=== PATIENT | female | born 1950 | race Hispanic/Latino ===

== ENCOUNTER 2017-07-25 11:39 | Emergency (ER) | payer OTHER ==
[2017-07-25 12:14] LABS: Absolute Lymphocytes (CBC) 3.8 K/uL (0.7-4.9); Absolute Monocytes 0.5 K/uL (0.1-1.3); Absolute Neutrophil 4.9 K/uL (1.8-8.0); Basophils % 0.4 % (0-1.3); Eosinophils % 0.5 % (0-4.4); Hematocrit 41.6 % (36.0-45.0); Lymphocytes % 40.7 % (15.3-44.8); MCH 29.3 pg (27.0-35.0); MCV 89.2 fL (80-100); MPV 8.7 fL (7.6-11.3); Monocytes % 5.7 % (3.3-12.3); RBC Red Blood Cell Count 4.67 M/uL (3.86-4.86)
[2017-07-25 12:21] LABS: Potassium 3.2 mEq/L (3.6-5.0)
[2017-07-25 12:27] LABS: Albumin 4.3 g/dL (3.2-5.5); Bilirubin Direct 0.1 mg/dL (0-0.2); Bilirubin Total 0.7 mg/dL (0.3-1.2); Magnesium 1.9 mg/dL (1.8-2.5); Protein, Total 7.6 g/dL (6.0-8.3); Protime INR 1.01
[2017-07-25 12:30] LABS: CKMB Creatine Kinase MB 2.5 ng/ml (0.3-4.0)
--- NOTE | 2017-07-25 13:24 | RAD REPORT ---
EXAM DESCRIPTION: RAD - Chest Single View - 07/25/2017 1:04 pm CLINICAL HISTORY: Chest pain COMPARISON: None. TECHNIQUE: AP portable chest image was obtained 1223 hours . FINDINGS: No failure, volume overload or focal lung parenchymal process. Interstitial markings are m ildly prominent believed be baseline. Heart and vasculature are normal. No measurable pleural effusio n and no pneumothorax. No gross bony abnormality seen. No acute aortic findings suspected. IMPRESSION: No acute cardiopulmonary process.
--- NOTE | 2017-07-25 13:34 | EKG ---
Test Date: 2017-07-25 Test Time: 11:54:01 Ict Analyst: JT MEASUREMENT RESULTS: Intervals: Rate: 79 OR: 148 QRSD: 82 QT: 404 QTc: 463 [place]: P: 65 OR: 148 QRS: 19 T: 45 INTERPRETIVE STATEMENTS: Normal sinus rhythm Normal ECG Compared to ECG 10/07/2012 12:13:53 Sinus bradycardia no longer present Electronically Signed On 07-25-17 13:34:14 CDT by Marcos Law
[2017-07-25] MEDS ORDERED: POTASSIUM CL SA 10 MEQ TAB PO ONE (13:43)
--- NOTE | 2017-07-25 15:39 | ER ---
Nurse's Notes [facility] Name: Myra Healy Age: 67 yrs Sex: Female : 1950 Arrival Date: 07/25/2017 Time: 11:39 Bed 16 Private MD: Yosi Barron C Diagnosis: Chest pain, unspecified Presentation: 07/25 11:52 Presenting complaint: Patient states: shortness of breath a slight chest pain for about dm5 a week. Got worse about an hour ago while showering. pain currently 3/10 was 6/10. Transition of care: patient was not received from another setting of care. Onset of symptoms was July 25, 2017 at 11:00. Initial Sepsis Screen: Does the patient meet any 2 criteria? RR > 20 per min. No. Patient's initial sepsis screen is negative. Does the patient have a suspected source of infection? No. Patient's initial sepsis screen is negative. Care prior to arrival: None. 11:52 Acuity: OBDULIA 2 dm5 11:52 Method Of Arrival: Ambulatory dm5 12:11 Risk Assessment: Do you want to hurt yourself or someone else? Patient reports no ae1 desire to harm self or others. Triage Assessment: 11:52 General: Appears distressed, Behavior is cooperative, anxious. Pain: Complains of pain dm5 in chest Pain radiates to back Pain currently is 3 out of 10 on a pain scale. at worst was 6 out of 10 on a pain scale. Neuro: Level of Consciousness is awake, alert, obeys commands, Oriented to person, place, time, Senior Applications Developer are equal bilaterally Moves all extremities. Gait is steady. Cardiovascular: Reports chest pain, diaphoresis, fatigue, shortness of breath. Historical: - Allergies: 12:34 No Known Allergies; ae1 - Home Meds: 12:34 losartan 100 mg oral tab 1 tab once daily [Active]; pantoprazole 40 mg oral TbEC 1 tab ae1 once daily [Active]; 12:38 Colace 50 mg oral cap 1 cap 2 times per day [Active]; Probiotic oral Pearls oral ae1 [Active]; - PMHx: 12:34 Hypertension; ae1 - PSHx: 12:34 sinus surgery to improve nasal drainage.; ae1 - Immunization history:: Last tetanus immunization: > 10 years ago Pneumococcal vaccine is not up to date, Flu vaccine is not up to date. - Social history:: Smoking status: Patient/guardian denies using tobacco. - Ebola Screening: : Patient negative for fever greater than or equal to 101.5 degrees Fahrenheit, and additional compatible Ebola Virus Disease symptoms Patient denies exposure to infectious person Patient denies travel to an Ebola-affected area in the 21 days before illness onset. Screenin:11 Abuse screen: Denies threats or abuse. Denies injuries from another. Nutritional ae1 screening: No deficits noted. Tuberculosis screening: No symptoms or risk factors identified. Fall Risk None identified. Assessment: 12:12 Pain: Pain began suddenly, 2 hours ago. ae1 12:31 Reassessment: Patient refuses pain medication and nausea medication at this time. ae1 Denies pain, states she feels better. 13:15 Reassessment: Patient up to restroom to urinate .Obtained urine sample at this time. ae1 14:00 Reassessment: Provider at bedside discussing plan of care. ae1 14:58 Reassessment: Patient appears in no apparent distress at this time. Patient denies pain ae1 at this time. Patient states feeling better. Patient states symptoms have improved. 15:50 Reassessment: Provider at bedside discussing plan of care. ae1 Vital Signs: 11:52 BP 148 / 83; Pulse 80; Resp 22; Temp 97.5; Pulse Ox 100% on R/A; Pain 3/10; dm5 12:34 BP 165 / 74; Pulse 67; Resp 19; Pulse Ox 98% on R/A; Weight 71.67 kg (R); Pain 0/10; ae1 13:46 BP 131 / 73; Pulse 68; Resp 18; Pulse Ox 98% on R/A; ae1 14:58 BP 112 / 61; Pulse 78; Resp 17; Pulse Ox 99% on R/A; ae1 16:24 BP 152 / 65; Pulse 80; Resp 18; Pulse Ox 100% on R/A; ae1 ED Course: 11:39 Patient arrived in ED. as 11:40 Yosi Barron MD is Private Physician. as 11:43 Aamir Sanford PA is PHCP. cp 11:43 Jackson Wade MD is Attending Physician. cp 11:52 Arm band placed on right wrist. Patient placed in an exam room, on a stretcher, on dm5 back tender fourdrinier, on pulse oximetry. 11:54 Triage completed. dm5 11:58 EKG done, by technology analyst. reviewed by Aamir HACKETT. at1 12:08 Thien Pro, CHRISTINA is Primary Nurse. ae1 12:10 Inserted saline lock: 20 gauge in right antecubital area, using aseptic technique. ae1 Blood collected. Patient maintains SpO2 saturation greater than 95% on room air. 12:11 Placed in gown. Bed in low position. Call light in reach. Side rails up X 1. Adult w/ ae1 patient. outside sales inspector on. Pulse ox on. NIBP on. Warm blanket given. 13:05 XRAY Chest (1 view) In Process Unspecified. EDMS 13:09 X-ray completed. Portable x-ray completed in exam room. Patient tolerated procedure mh1 well. 15:28 EKG done, by technology analyst. reviewed by Aamir HACKTET. sm3 15:39 Yosi Barron MD is Referral Physician. cp 16:06 CT Chest For PE Angio In Process Unspecified. EDMS 16:09 CT completed. Patient tolerated procedure well. Patient moved back from CT. mw3 16:39 Yosi Barron MD is Referral Physician. cp 16:57 No provider procedures requiring assistance completed. IV discontinued, intact, ae1 bleeding controlled, No redness/swelling at site. Pressure dressing applied. Administered Medications: 12:20 Drug: NS 0.9% 500 ml Route: IV; Rate: bolus; Site: right antecubital; ae1 12:40 Follow up: IV Status: Completed infusion ae1 12:20 Drug: Aspirin Chewable Tablet 324 mg Route: PO; ae1 13:45 Follow up: Response: No adverse reaction ae1 13:43 Drug: Potassium Chloride 20 mEq Route: PO; ae1 14:57 Follow up: Response: No adverse reaction ae1 13:44 Not Given (Patient Refused): morphine 2 mg IVP once ae1 13:44 Not Given (Patient Refused): Zofran 4 mg IVP once; over 2 minutes ae1 Outcome: 15:39 Discharge ordered by MD. cp 16:40 Discharge ordered by MD. cp 16:57 Discharged to home ambulatory, with significant other. ae1 16:57 Condition: stable 16:57 Discharge instructions given to patient, significant other, Instructed on discharge instructions, follow up and referral plans. medication usage, Demonstrated understanding of instructions, Prescriptions given X 2. 16:58 Patient left the ED. ae1 Signatures: Dispatcher [employer] Gwen Hays, RN RN dm5 Michaela Saul mh1 Jessy Brian Amanda, seam sewer EKG Tat1 Aamir Sanford PA PA cp Elliott, Andrea, RN RN ae1 Alie Wilhelm 3 Angelica Pennington 3
--- NOTE | 2017-07-25 15:39 | EDPHYS ---
Physician Documentation [facility] Name: Myra Healy Age: 67 yrs Sex: Female : 1950 Arrival Date: 07/25/2017 Time: 11:39 Bed 16 Private MD: Yosi Barron C ED Physician Jackson Wade HPI: 07/25 12:06 This 67 yrs old Female presents to ER via Ambulatory with complaints of Chest cp Pain. 12:07 The patient or guardian reports chest pain that is located primarily in the right lower cp lateral chest. Onset: 30 minute(s) ago. The pain radiates to epigastric area and right breast. 12:07 Associated signs and symptoms: Pertinent positives: shortness of breath, fatigue. The cp chest pain is described as a pressure. 12:07 Duration: The patient or guardian reports a single episode, improved. cp 15:48 Patient reports recent sinus surgery that required general anesthesia. cp Historical: - Allergies: 12:34 No Known Allergies; ae1 - Home Meds: 12:34 losartan 100 mg oral tab 1 tab once daily [Active]; pantoprazole 40 mg oral TbEC 1 tab ae1 once daily [Active]; 12:38 Colace 50 mg oral cap 1 cap 2 times per day [Active]; Probiotic oral Pearls oral ae1 [Active]; - PMHx: 12:34 Hypertension; ae1 - PSHx: 12:34 sinus surgery to improve nasal drainage.; ae1 - Immunization history:: Last tetanus immunization: > 10 years ago Pneumococcal vaccine is not up to date, Flu vaccine is not up to date. - Social history:: Smoking status: Patient/guardian denies using tobacco. - Ebola Screening: : Patient negative for fever greater than or equal to 101.5 degrees Fahrenheit, and additional compatible Ebola Virus Disease symptoms Patient denies exposure to infectious person Patient denies travel to an Ebola-affected area in the 21 days before illness onset. ROS: 12:15 Constitutional: Negative for body aches, chills, fever, poor PO intake. cp 12:15 Eyes: Negative for injury, pain, redness, and discharge. cp 12:15 ENT: Negative for drainage from ear(s), ear pain, sore throat, difficulty swallowing, difficulty handling secretions. 12:15 Cardiovascular: Positive for chest pain, Negative for edema, palpitations. 12:15 Respiratory: Positive for shortness of breath, on exertion. Negative for cough, wheezing. 12:15 Abdomen/GI: Negative for abdominal pain, vomiting, diarrhea, constipation, anorexia, black/tarry stool, rectal bleeding. 12:15 Back: Positive for radiated pain, of the right mid back, Negative for injury or acute deformity, decreased range of motion. 12:15 : Negative for urinary symptoms. 12:15 MS/extremity: Negative for decreased range of motion, pain, paresthesias, swelling, tenderness. 12:15 Skin: Negative for cellulitis, rash. 12:15 Neuro: Negative for altered mental status, dizziness, headache, weakness. 12:15 All other systems are negative. Exam: 12:00 ECG was reviewed by the Attending Physician. cp 12:19 Constitutional: The patient appears in no acute distress, alert, awake, cp non-diaphoretic, non-toxic, well developed, well nourished. 12:19 Head/Face: Normocephalic, atraumatic. cp 12:19 Eyes: Periorbital structures: appear normal, Pupils: equal, round, and reactive to light and accomodation, Extraocular movements: intact throughout, Conjunctiva: normal, no exudate, no injection, Sclera: no appreciated abnormality, Lids and lashes: appear normal, bilaterally. 12:19 ENT: External ear(s): are unremarkable, Ear canal(s): are normal, clear, TM's: bulging, is not appreciated, bilaterally, dullness, bilaterally, erythema, is not appreciated, bilaterally, Nose: is normal, Mouth: is normal, Posterior pharynx: is normal, airway is patent, no erythema, no exudate. 12:19 Neck: ROM/movement: is normal, is supple, without pain, no range of motions limitations, no nuchal rigidity. 12:19 Chest/axilla: Inspection: normal, Palpation: is normal, no crepitus, no tenderness. 12:19 Cardiovascular: Rate: normal, Rhythm: regular, Pulses: Pulses are 2+ in right radial artery and left radial artery. Edema: is not appreciated, JVD: is not appreciated. 12:19 Respiratory: the patient does not display signs of respiratory distress, Respirations: normal, no use of accessory muscles, no retractions, no splinting, no tachypnea, labored breathing, is not present, Breath sounds: are clear throughout, no decreased breath sounds, no stridor, no wheezing. 12:19 Abdomen/GI: Inspection: abdomen appears normal, Bowel sounds: active, all quadrants, Palpation: abdomen is soft and non-tender, in all quadrants, rebound tenderness, is not appreciated, voluntary guarding, is not appreciated, involuntary guarding, is not appreciated. 12:19 Back: pain, is absent, ROM is normal, CVA tenderness, is absent. 12:19 Skin: cellulitis, is not appreciated, no rash present. 12:19 Neuro: Orientation: to person, place \T\ time. Mentation: is normal, Cerebellar function: is grossly normal, Motor: moves all fours, strength is normal, Sensation: is normal. 15:22 ECG was reviewed by the Attending Physician. Vital Signs: 11:52 BP 148 / 83; Pulse 80; Resp 22; Temp 97.5; Pulse Ox 100% on R/A; Pain 3/10; dm5 12:34 BP 165 / 74; Pulse 67; Resp 19; Pulse Ox 98% on R/A; Weight 71.67 kg (R); Pain 0/10; ae1 13:46 BP 131 / 73; Pulse 68; Resp 18; Pulse Ox 98% on R/A; ae1 14:58 BP 112 / 61; Pulse 78; Resp 17; Pulse Ox 99% on R/A; ae1 16:24 BP 152 / 65; Pulse 80; Resp 18; Pulse Ox 100% on R/A; ae1 MDM: 11:52 Patient medically screened. cp 12:00 Differential diagnosis: abnormal EKG, acute myocardial infarction, anxiety, chest wall cp pain, cholecystitis, Cholelithiasis costochondritis, esophagitis, gastritis, pulmonary embolus, stable angina, thoracic aortic disection, unstable angina. 15:50 The patient's pulmonary embolism risk score was calculated as follows: patient has cp experienced immobilization or surgery in the last four weeks (1.5 Pts). 16:38 Data reviewed: vital signs, nurses notes, lab test result(s), EKG, radiologic studies, cp CT scan, plain films, and as a result, I will discharge patient. 16:38 Special discussion: I discussed with the patient the need to follow-up with the cp PCP/specialist for the noted incidental finding on X-ray/CT scanning. 16:38 ED course: VSS. Initial and repeat EKGs and troponin levels normal. CT chest negative cp for PE. Will discharge to home for continued monitoring. Recommend f/u with PCP for noted pulmonary nodule. 07/25 11:43 Order name: Basic Metabolic Panel; Complete Time: 13:04 cp 06/ 13:05 Interpretation: Normal except: K 3.2; CRE 1.04; GFR 53. cp 07/25 11:43 Order name: BNP; Complete Time: 13:04 cp 07/25 11:43 Order name: CBC with Diff; Complete Time: 13:04 cp 07/25 11:43 Order name: Ckmb; Complete Time: 13:04 cp 07/25 11:43 Order name: CPK; Complete Time: 13:04 cp 07/25 11:43 Order name: LFT's; Complete Time: 13:04 cp 07/25 11:43 Order name: Magnesium; Complete Time: 13:04 cp 07/25 11:43 Order name: PT-INR; Complete Time: 13:04 cp 07/25 11:43 Order name: Ptt, Activated; Complete Time: 13:04 cp 07/25 11:43 Order name: Troponin (emerg Dept Use Only); Complete Time: 13:04 cp 07/25 13:05 Interpretation: TROPED < 0.03; Reviewed. cp 07/25 12:00 Order name: Lipase; Complete Time: 13:04 cp 07/25 13:51 Order name: Urine Dipstick--Ancillary (enter results) bd 07/25 14:47 Order name: Troponin I; Complete Time: 15:38 ae1 07/25 15:38 Interpretation: Within normal limits: TROP < 0.03. cp 07/25 11:43 Order name: XRAY Chest (1 view); Complete Time: 15:38 cp 07/25 11:43 Order name: EKG; Complete Time: 11:44 cp 07/25 11:43 Order name: Cardiac monitoring; Complete Time: 12:09 cp 07/25 11:43 Order name: EKG - Nurse/Tech; Complete Time: 12:09 cp 07/25 11:43 Order name: IV Saline Lock; Complete Time: 12:09 cp 07/25 11:43 Order name: Labs collected and sent; Complete Time: 12:09 07/25 11:43 Order name: O2 Per Protocol; Complete Time: 12:09 07/25 11:43 Order name: O2 Sat Monitoring; Complete Time: 12:10 07/25 11:43 Order name: Urine Dipstick-Ancillary (obtain specimen); Complete Time: 13:49 07/25 14:50 Order name: EKG; Complete Time: 14:50 07/25 15:53 Order name: CT Chest For PE Angio; Complete Time: 16:35 07/25 16:36 Interpretation: Report reviewed. 07/25 14:50 Order name: EKG - Nurse/Tech; Complete Time: 15:18 cp EC:00 Rate is 79 beats/min. Rhythm is regular. MA interval is normal. QRS interval is normal. cp QT interval is normal. No ST changes noted. Interpreted by me. Reviewed by me. 15:22 Rate is 64 beats/min. Rhythm is regular. MA interval is normal. QRS interval is normal. cp QT interval is normal. No ST changes noted. Interpreted by me. Reviewed by me. Administered Medications: 12:20 Drug: NS 0.9% 500 ml Route: IV; Rate: bolus; Site: right antecubital; ae1 12:40 Follow up: IV Status: Completed infusion ae1 12:20 Drug: Aspirin Chewable Tablet 324 mg Route: PO; ae1 13:45 Follow up: Response: No adverse reaction ae1 13:43 Drug: Potassium Chloride 20 mEq Route: PO; ae1 14:57 Follow up: Response: No adverse reaction ae1 13:44 Not Given (Patient Refused): morphine 2 mg IVP once ae1 13:44 Not Given (Patient Refused): Zofran 4 mg IVP once; over 2 minutes ae1 Disposition: 07/25/17 16:40 Discharged to Home. Impression: Chest pain, unspecified. - Condition is Stable. - Discharge Instructions: Nonspecific Chest Pain, Aspirin and Your Heart. - Prescriptions for Ibuprofen 800 mg Oral Tablet - take 1 tablet by ORAL route every 8 hours As needed take with food; 30 tablet. Pepcid 20 mg Oral Tablet - take 1 tablet by ORAL route every 12 hours for 10 days; 20 tablet. - Medication Reconciliation Form, Thank You Letter, Antibiotic Education, Prescription Opioid Use form. - Follow up: Yosi Barron MD; When: 2 - 3 days; Reason: Recheck today's complaints. - Problem is new. - Symptoms have improved. Addendum: 07/27/2017 13:34 Co-signature as Attending Physician, Jackson Wade MD. g s Signatures: Dispatcher [employer] EDMS Aamir Sanford PA PA cp Thien Pro, RN RN ae1 Jackson Wade MD MD Corrections: (The following items were deleted from the chart) 07/25 15:52 15:39 07/25/2017 15:39 Discharged to Home. Impression: Chest pain, unspecified. cp Condition is Stable. Forms are Medication Reconciliation Form, Thank You Letter, Antibiotic Education, Prescription Opioid Use. Follow up: Yosi Barron; When: 2 - 3 days; Reason: Recheck today's complaints. Problem is new. Symptoms have improved. cp 16:58 16:40 07/25/2017 16:40 Discharged to Home. Impression: Chest pain, unspecified. ae1 Condition is Stable. Prescriptions for Ibuprofen 800 mg Oral Tablet - take 1 tablet by ORAL route every 8 hours As needed take with food; 30 tablet, Pepcid 20 mg Oral Tablet - take 1 tablet by ORAL route every 12 hours for 10 days; 20 tablet. and Forms are Medication Reconciliation Form, Thank You Letter, Antibiotic Education, Prescription Opioid Use. Follow up: Yosi Barron; When: 2 - 3 days; Reason: Recheck today's complaints. Problem is new. Symptoms have improved. cp
--- NOTE | 2017-07-25 16:34 | RAD REPORT ---
EXAM DESCRIPTION: CT - Chest For Pe Angio - 07/25/2017 4:07 pm CLINICAL HISTORY: Chest pain for 1 week COMPARISON: None. TECHNIQUE: Dynamically enhanced axial 3 mm thick images of the chest were obtained during administra tion of <100> mL Isovue 370 IV contrast. Coronal and oblique reconstruction images were generated and reviewed. Exam utilizes a protocol for optimal evaluation of pulmonary arterial tree. All CT scans are performed using dose optimization technique as appropriate and may include automated exposure control or mA/KV adjustment according to patient size. FINDINGS: A pulmonary embolus is not seen. A thoracic aortic aneurysm is not noted. A pleural effusion is not seen. A pericardial effusion is not seen. An 11 millimeter nodules present within the right lower lobe image 54 IMPRESSION: Negative for a pulmonary embolism. 11 millimeter nodule within the right lower lobe . Nuclear medicine PET-CT scan is recommended to det ermine if there is abnormal uptake to suggest neoplasm
[2017-07-25 17:22] LABS: Urine Blood NEGATIVE (NEG); Urine Glucose NEGATIVE (NEG); Urine Protein NEGATIVE (NEG); Urine Specific Gravity 1.025 (1.005-1.030); Urine pH 5.5 (5.0-7.0)
--- NOTE | 2017-07-26 06:48 | EKG ---
Test Date: 2017-07-25 Test Time: 15:15:58 Distribution Associate: CURLY MEASUREMENT RESULTS: Intervals: Rate: 64 UT: 152 QRSD: 82 QT: 436 QTc: 449 [place]: P: 59 UT: 152 QRS: 13 T: 28 INTERPRETIVE STATEMENTS: Normal sinus rhythm Normal ECG Compared to ECG 07/25/2017 11:54:01 No significant changes Electronically Signed On 07-26-17 06:47:36 CDT by Marcos Law
== END 2017-07-25 16:58 | disposition home or self-care (01) ==
LOC: ER 11:39
DX: R07.9 Chest pain, unspecified (principal); I10 Essential (primary) hypertension
CPT/HCPCS: 36415; 71045; 71275; 80048; 80076; 81003; 82550; 82553; 83690; 83735; 83880; 84484; 85025; 85610; 85730; 93005; 99285; Q9967

== ENCOUNTER 2017-11-11 09:15 | Emergency (ER) | payer OTHER ==
--- NOTE | 2017-11-11 10:00 | RAD REPORT ---
EXAM DESCRIPTION: CT - Head Brain Wo Cont - 11/11/2017 9:53 am CLINICAL HISTORY: Fall, head trauma, loss of consciousness COMPARISON: None. TECHNIQUE: Axial 5 mm thick images of the head were obtained without IV contrast. All CT scans are performed using dose optimization technique as appropriate and may include automated exposure control or mA/KV adjustment according to patient size. FINDINGS: No intracranial hemorrhage, mass, edema or shift of mid-line structures. No evidence for a n acute cortical based infarction. No cortical edema or sulcal effacement. No significant atrophy dolores nges are noted. Patient has mild chronic ischemic change. Focal decreased attenuation seen near the g enu internal capsule on the right. No abnormal extra-axial fluid collections. Ventricles are normal. Mastoid air cells and visualized portions of the paranasal sinuses are clear. No acute bony findings. IMPRESSION: No hemorrhage, edema or acute intracranial finding. Scattered white matter chronic ischemic changes are evident without significant atrophy. History indicates fall rather than CVA symptoms. Chronic ischemic change can mask acute nonhemorrhag ic ischemia. If there is concern the fall was triggered by a CVA event, followup MR imaging could be performed.
[2017-11-11] MEDS ORDERED: LIDOCAINE 1% MPF 2 ML AMPULE ONE (10:45)
--- NOTE | 2017-11-11 10:46 | RAD REPORT ---
EXAM DESCRIPTION: RAD - Ankle Left 3 View -11/11/2017 10:13 am CLINICAL HISTORY: Left ankle pain status post injury FINDINGS: No fracture or dislocation is seen. Soft tissue swelling is present laterally
--- NOTE | 2017-11-11 10:55 | ER ---
Nurse's Notes [facility] Name: Ekta Healy Age: 67 yrs Sex: Female : 1950 Arrival Date: 11/11/2017 Time: 09:16 Bed 8 Private MD: Yosi Barron C Diagnosis: Superficial injury of head;Laceration without foreign body of left ear;Sprain of ankle Presentation: 11/11 09:19 Presenting complaint: Patient states: fell while getting out of bed this morning, + sv LOC, laceration behind the left ear. c/o lightheadedness since and headache and left ankle pain. Care prior to arrival: None. Trauma event details: Injury occurred in the [facility], Injury occurred: at home. Injury occurred: November 11, 2017 Injury occurred at: 03:30. 09:19 Acuity: OBDULIA 3 sv 09:19 Method Of Arrival: Wheelchair sv 09:22 Transition of care: patient was not received from another setting of care. Onset of sv symptoms was November 11, 2017. 09:30 Mechanism of Injury: Fall out of bed approximately 2.5 feet. hb 09:38 Risk Assessment: Do you want to hurt yourself or someone else? Patient reports no hb desire to harm self or others. Initial Sepsis Screen: Does the patient meet any 2 criteria? No. Patient's initial sepsis screen is negative. Does the patient have a suspected source of infection? No. Patient's initial sepsis screen is negative. Trauma Activation: Not Applicable Physician: ED Physician; Name: ; Notified At: ; Arrived At: Physician: General Surgeon; Name: ; Notified At: ; Arrived At: Physician: Radiology; Name: ; Notified At: ; Arrived At: Physician: Respiratory; Name: ; Notified At: ; Arrived At: Physician: Lab; Name: ; Notified At: ; Arrived At: Historical: - Allergies: 09:21 No Known Allergies; sv - Home Meds: 09:46 Colace 50 mg Oral cap 1 cap 2 times per day [Active]; losartan 100 mg Oral tab 1 tab hb once daily [Active]; pantoprazole 40 mg Oral TbEC 1 tab once daily [Active]; Probiotic Pearls Oral [Active]; - PMHx: 09:21 Hypertension; sv - PSHx: 09:21 sinus surgery to improve nasal drainage.; sv - Immunization history:: Adult Immunizations up to date. - Social history:: Smoking status: Patient/guardian denies using tobacco. - Immunization history: Last tetanus immunization: < 10 years ago. - Ebola Screening: : No symptoms or risks identified at this time. Screenin:36 Abuse screen: Denies threats or abuse. Denies injuries from another. Nutritional hb screening: No deficits noted. Tuberculosis screening: No symptoms or risk factors identified. Fall Risk Total A[place]os Fall Scale indicates Low Risk Score (25-44 pts). Fall prevention measures have been instituted. Side Rails Up X 2 Frequent Obs/Assesments occuring Family Present and informed to notify staff if they need to leave bedside As available Patient and Family Educated on Fall Prevention Program and strategies. Primary Survey: 09:28 A: Airway: patent. Breathing/Chest: Respiratory pattern: regular, Respiratory effort: hb spontaneous, unlabored, Breath sounds: clear, bilaterally. Chest inspection: symmetrical rise and fall of the chest. Circulation: Skin color: pink, Skin temperature: warm, dry. Disability Alert. 10:15 Reassessment Airway Airway Patent Breathing/Chest Respiratory pattern Regular hb Respiratory effort Spontaneous Unlabored Chest inspection Symmetrical Circulation Color [place] Temperature Warm Dry Disability Alert. Secondary Survey: 09:40 HEENT: Ears: laceration to back of left earlobe, bleeding controlled. Gastrointestinal: hb No deficits noted. : No deficits noted. Musculoskeletal: Reports pain in left ankle, headache. Assessment: 09:43 General: Appears in no apparent distress. Behavior is calm, cooperative. Pain: Pain hb currently is 3 out of 10 on a pain scale. Neuro: Level of Consciousness is awake, alert, obeys commands, Oriented to person, place, time, situation, Pupils are PERRLA. EENT: laceration to back of left earlobe . Cardiovascular: Heart tones S1 S2 present Capillary refill < 3 seconds Patient's skin is warm and dry. Respiratory: Airway is patent Trachea midline Respiratory effort is even, unlabored, Respiratory pattern is regular, symmetrical, Breath sounds are clear bilaterally. GI: No signs and/or symptoms were reported involving the gastrointestinal system. : No signs and/or symptoms were reported regarding the genitourinary system. Derm: No signs and/or symptoms reported regarding the dermatologic system. Skin is intact, is healthy with good turgor, Skin is pink, warm \T\ dry. Musculoskeletal: Reports left ankle pain. 10:30 Reassessment: Patient appears in no apparent distress at this time. No changes from hb previously documented assessment. Patient and/or family updated on plan of care and expected duration. Pain level reassessed. Patient is alert, oriented x 3, equal unlabored respirations, skin warm/dry/pink. 10:44 Reassessment: ROXANN Brown at bedside for laceration repair. hb Vital Signs: 09:21 BP 138 / 73; Pulse 70; Resp 18; Temp 97.2; Pulse Ox 95% ; Weight 71.67 kg; Height 5 ft. sv 4 in. (162.56 cm); 09:45 BP 135 / 74; Pulse 71; Resp 16; Pulse Ox 100% on R/A; Pain 3/10; hb 10:30 BP 132 / 72; Pulse 70; Resp 15; Pulse Ox 100% on R/A; hb 09:21 Body Mass Index 27.12 (71.67 kg, 162.56 cm) sv Myriam Coma Score: 09:30 Eye Response: spontaneous(4). Verbal Response: oriented(5). Motor Response: obeys hb commands(6). Total: 15. 09:33 Eye Response: spontaneous(4). Verbal Response: oriented(5). Motor Response: obeys jr8 commands(6). Total: 15. Trauma Score (Adult): 09:30 Eye Response: spontaneous(1); Verbal Response: oriented(1); Motor Response: obeys hb commands(2); Systolic BP: > 89 mm Hg(4); Respiratory Rate: 10 to 29 per min(4); Myriam Score: 15; Trauma Score: 12 10:30 Eye Response: spontaneous(1); Verbal Response: oriented(1); Motor Response: obeys hb commands(2); Systolic BP: > 89 mm Hg(4); Respiratory Rate: 10 to 29 per min(4); Myriam Score: 15; Trauma Score: 12 ED Course: 09:16 Patient arrived in ED. sb2 09:17 Yosi Barron MD is Private Physician. sb2 09:21 Triage completed. sv 09:22 Arm band placed on right wrist. sv 09:23 [facility] jr8 09:23 Catarino Canas MD is Attending Physician. jr8 09:23 Sonia Ray, RN is Primary Nurse. hb 09:32 Patient maintains SpO2 saturation greater than 95% on room air. Thermoregulation: warm hb blanket given to patient. 09:33 Patient has correct armband on for positive identification. Placed in gown. Bed in low hb position. Call light in reach. Side rails up X 1. 09:53 CT Head Brain wo Cont In Process Unspecified. EDMS 09:59 CT completed. Patient tolerated procedure well. Patient moved back from CT. Patient jg6 moved back from radiology. 10:03 X-ray completed. Portable x-ray completed in exam room. Patient tolerated procedure jb2 well. 10:04 XRAY Ankle LEFT 3 view In Process Unspecified. EDMS 10:53 Assist provider with laceration repair on left ear that was 2.5 cm. or less using hb sutures. Set up tray. Performed by Kevin HACKETT Patient tolerated well. 10:54 Yosi Barron MD is Referral Physician. jr8 11:02 Angel wrap to left ankle. 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 Exp: sg 11/21/2019. Lot #: [id number]. } Route: IM; Site: right deltoid; Intake: 10:05 PO: 0ml; Total: 0ml. hb Output: 10:05 Urine: 200ml (Voided); Total: 200ml. hb Outcome: 10:55 Discharge ordered by . jr8 11:40 Patient left the ED. hb Signatures: Dispatcher [employer] EDVT Umu Reese RN RN sv Gay, Steven, RN RN sg Buechter, Jesse jb2 Roszak, Josh, PA PA jrSonia Taylor RN RN Lis Gonsalez Jessica jg6 Corrections: (The following items were deleted from the chart) 09:21 09:19 Presenting complaint: Patient states: fell while getting out of bed this morning, sv + LOC, laceration behind the left ear. c/o lightheadedness since. sv 11:04 11:02 Angel wrap to right ankle sg sg 11:21 11:01 Tetanus-Diphtheria Toxoid Adult 0.5 ml IM in right deltoid Game Moderator: [employer] Lot: [id number] Exp: 11/13/2019 sg
--- NOTE | 2017-11-11 10:56 | EDPHYS ---
Physician Documentation [facility] Name: Ekta Healy Age: 67 yrs Sex: Female : 1950 Arrival Date: 11/11/2017 Time: 09:16 Bed 8 Private MD: Yosi Barron C ED Physician Catarino Canas HPI: 11/11 09:33 This 67 yrs old Female presents to ER via Wheelchair with complaints of Head jr8 Injury With LOC-Adult, Ankle Swelling. 09:33 The patient or guardian reports a laceration, pain, tenderness. The complaints affect jr8 the left ear and left base of the skull. Context of injury: The problem was sustained at home, resulted from a fall. Onset: The symptoms/episode began/occurred acutely, this morning, today. Associated signs and symptoms: Loss of consciousness: This patient experience a loss of consciousness. Severity of symptoms: At their worst the symptoms were moderate, in the emergency department the symptoms have improved. The patient has not experienced similar symptoms in the past. The patient has not recently seen a physician. Tripped while getting out of bed. Fell hitting left skull base on side table. + LOC that lasted for a few seconds. Currently with only mild headache . Historical: - Allergies: 09:21 No Known Allergies; sv - Home Meds: 09:46 Colace 50 mg Oral cap 1 cap 2 times per day [Active]; losartan 100 mg Oral tab 1 tab hb once daily [Active]; pantoprazole 40 mg Oral TbEC 1 tab once daily [Active]; Probiotic Pearls Oral [Active]; - PMHx: 09:21 Hypertension; sv - PSHx: 09:21 sinus surgery to improve nasal drainage.; sv - Immunization history:: Adult Immunizations up to date. - Social history:: Smoking status: Patient/guardian denies using tobacco. - Immunization history: Last tetanus immunization: < 10 years ago. - Ebola Screening: : No symptoms or risks identified at this time. ROS: 09:33 Eyes: Negative for injury, pain, redness, and discharge, ENT: Negative for pain, and jr8 discharge. Laceration to left ear Neck: Negative for injury, pain, and swelling, Cardiovascular: Negative for chest pain, palpitations, and edema, Respiratory: Negative for shortness of breath, cough, wheezing, and pleuritic chest pain, Abdomen/GI: Negative for abdominal pain, nausea, vomiting, diarrhea, and constipation, Back: Negative for injury and pain, Skin: Negative for injury, rash, and discoloration. 09:33 Neuro: Positive for headache, loss of consciousness, Negative for altered mental status, gait disturbance, numbness, seizure activity, speech changes, syncope, near syncope, tingling, tinnitus, tremor, visual changes, weakness. 09:33 MS/extremity: Positive for pain, swelling, tenderness, of the left lateral malleolus . jr8 Exam: 09:33 Eyes: Pupils equal round and reactive to light, extra-ocular motions intact. Lids and jr8 lashes normal. Conjunctiva and sclera are non-icteric and not injected. Cornea within normal limits. Periorbital areas with no swelling, redness, or edema. ENT: Nares patent. No nasal discharge, no septal abnormalities noted. Tympanic membranes are normal and external auditory canals are clear. Oropharynx with no redness, swelling, or masses, exudates, or evidence of obstruction, uvula midline. Mucous membranes moist. Neck: Trachea midline, no thyromegaly or masses palpated, and no cervical lymphadenopathy. Supple, full range of motion without nuchal rigidity, or vertebral point tenderness. No Meningismus. Cardiovascular: Regular rate and rhythm with a normal S1 and S2. No gallops, murmurs, or rubs. Normal PMI, no JVD. No pulse deficits. Respiratory: Lungs have equal breath sounds bilaterally, clear to auscultation and percussion. No rales, rhonchi or wheezes noted. No increased work of breathing, no retractions or nasal flaring. Abdomen/GI: Soft, non-tender, with normal bowel sounds. No distension or tympany. No guarding or rebound. No evidence of tenderness throughout. Back: No spinal tenderness. No costovertebral tenderness. Full range of motion. Skin: Warm, dry with normal turgor. Normal color with no rashes, no lesions, and no evidence of cellulitis. Neuro: Awake and alert, GCS 15, oriented to person, place, time, and situation. Cranial nerves II-XII grossly intact. Motor strength 5/5 in all extremities. Sensory grossly intact. Cerebellar exam normal. Normal gait. 09:33 Head/face: Noted is a laceration(s), that is deep, that is linear, 1.5 cm(s), of the left ear, tenderness, that is mild, of the post auricular region left side. 09:33 Musculoskeletal/extremity: Extremities: grossly normal except: noted in the left ankle: decreased ROM, pain, swelling, tenderness, to lateral malleolus . Vital Signs: 09:21 BP 138 / 73; Pulse 70; Resp 18; Temp 97.2; Pulse Ox 95% ; Weight 71.67 kg; Height 5 ft. sv 4 in. (162.56 cm); 09:45 BP 135 / 74; Pulse 71; Resp 16; Pulse Ox 100% on R/A; Pain 3/10; hb 10:30 BP 132 / 72; Pulse 70; Resp 15; Pulse Ox 100% on R/A; hb 09:21 Body Mass Index 27.12 (71.67 kg, 162.56 cm) sv Myriam Coma Score: 09:30 Eye Response: spontaneous(4). Verbal Response: oriented(5). Motor Response: obeys hb commands(6). Total: 15. 09:33 Eye Response: spontaneous(4). Verbal Response: oriented(5). Motor Response: obeys jr8 commands(6). Total: 15. Trauma Score (Adult): 09:30 Eye Response: spontaneous(1); Verbal Response: oriented(1); Motor Response: obeys hb commands(2); Systolic BP: > 89 mm Hg(4); Respiratory Rate: 10 to 29 per min(4); [place] Score: 15; Trauma Score: 12 10:30 Eye Response: spontaneous(1); Verbal Response: oriented(1); Motor Response: obeys hb commands(2); Systolic BP: > 89 mm Hg(4); Respiratory Rate: 10 to 29 per min(4); Myriam Score: 15; Trauma Score: 12 Procedures: 10:53 Splinting: Splint applied to left ankle using david wrap, applied by nurse. Examined by loli pa, post splint application: neurovascular intact, 2+ distal pulses palpable, brisk capillary refill noted, Patient tolerated well. Laceration: 10:53 Wound Repair of 1.5cm ( 0.6in ) subcutaneous laceration to left ear. Linear shaped.. jr8 Minimal bleeding noted.. Distal neuro/vascular/tendon intact. Anesthesia: Local anesthetic administered with 1 mls of 1% lidocaine. Wound prep: Moderate cleansing with hibiclenz, Wound explored extensively. Skin closed with 3 5-0 Prolene using interrupted sutures and sterile technique. Patient tolerated well. MDM: 09:23 Patient medically screened. jr8 10:53 Data reviewed: vital signs, nurses notes, radiologic studies, CT scan, plain films. jr8 Data interpreted: Pulse oximetry: on room air is 100 %. Interpretation: normal. Counseling: I had a detailed discussion with the patient and/or guardian regarding: the historical points, exam findings, and any diagnostic results supporting the discharge/admit diagnosis, radiology results, the need for outpatient follow up, a family practitioner, to return to the emergency department if symptoms worsen or persist or if there are any questions or concerns that arise at home. 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 Exp: sg 11/21/2019. Lot #: [id number]. } Route: IM; Site: right deltoid; Disposition: 13:40 Co-signature as Attending Physician, Catarino Canas MD. rn Disposition: 11/11/17 10:55 Discharged to Home. Impression: Superficial injury of head, Laceration without foreign body of left ear, Sprain of ankle. - Condition is Stable. - Discharge Instructions: Ankle Sprain, Head Injury, Adult, Laceration Care, Adult. - Prescriptions for Ibuprofen 800 mg Oral Tablet - take 1 tablet by ORAL route every 12 hours As needed take with food; 20 tablet. Ultracet 37.5- 325 mg Oral Tablet - take 1 tablet by ORAL route every 6 hours - for up to 5 days; do not exceed 8 tablets per day.; 30 tablet. - Medication Reconciliation Form, Thank You Letter, Antibiotic Education, Prescription Opioid Use form. - Follow up: Yosi Barron MD; When: 1 week; Reason: Wound Recheck, Recheck today's complaints, Continuance of care, Staple/Suture removal, Re-evaluation by your physician. - Problem is new. - Symptoms have improved. Signatures: Dispatcher [employer] Umu Gomez RN Vinayak Cabrera RN RN sg Catarino Canas MD MD rn Roszak, Josh PA PA jr8 Sonia Ray RN RN hb Corrections: (The following items were deleted from the chart) 09:37 09:33 Eyes: Negative for injury, pain, redness, and discharge, ENT: Negative for pain, jr8 and discharge. Laceration to left ear Neck: Negative for injury, pain, and swelling, Cardiovascular: Negative for chest pain, palpitations, and edema, Respiratory: Negative for shortness of breath, cough, wheezing, and pleuritic chest pain, Abdomen/GI: Negative for abdominal pain, nausea, vomiting, diarrhea, and constipation, Back: Negative for injury and pain, MS/Extremity: Negative for injury and deformity, Skin: Negative for injury, rash, and discoloration, jr8 11:40 10:55 11/11/2017 10:55 Discharged to Home. Impression: Superficial injury of head; hb Laceration without foreign body of left ear; Sprain of ankle. Condition is Stable. Forms are Medication Reconciliation Form, Thank You Letter, Antibiotic Education, Prescription Opioid Use. Follow up: A Barron; When: 1 week; Reason: Wound Recheck, Recheck today's complaints, Continuance of care, Staple/Suture removal, Re-evaluation by your physician. Problem is new. Symptoms have improved. jr8
[2017-11-11] MEDS ORDERED: TETANUS & DIPHTHERIA TOX,ADULT 0.5 ML VIAL ONE (10:59)
[2017-11-11] MEDS ORDERED: LIDOCAINE 1% MPF 5 ML VIAL ONE (11:16)
== END 2017-11-11 11:40 | disposition home or self-care (01) ==
LOC: ER 09:15
PROC: 0HQ3XZZ Repair Left Ear Skin, External Approach (ICD-10-PCS; principal; 2017-11-11)
DX: S01.312A Laceration without foreign body of left ear, initial encounter (principal); S93.402A Sprain of unspecified ligament of left ankle, initial encounter; W01.190A Fall on same level from slipping, tripping and stumbling with subsequent striking against furniture, initial encounter; Y93.89 Activity, other specified; Y92.003 Bedroom of unspecified non-institutional (private) residence as the place of occurrence of the external cause; Z23 Encounter for immunization; I10 Essential (primary) hypertension
CPT/HCPCS: 70450; 90714; 99285; J2001

== ENCOUNTER 2020-07-11 08:50 | Emergency (ER) | payer OTHER ==
[2020-07-11 09:34] LABS: Absolute Lymphocytes (CBC) 1.1 K/uL (0.7-4.9); Basophils % 0.3 % (0-1.3); Hematocrit 40.5 % (36.0-45.0); Lymphocytes % 11.7 % (15.3-44.8); MPV 8.8 fL (7.6-11.3); RBC Red Blood Cell Count 4.61 M/uL (3.86-4.86)
[2020-07-11] MEDS ORDERED: NA CHLORIDE 0.9% 1,000 ML ONE (09:37)
[2020-07-11] MEDS ORDERED: ONDANSETRON 4 MG/2 ML VIAL ONE (09:37)
[2020-07-11 09:49] LABS: Bilirubin Direct 0.2 mg/dL (0-0.2); Bilirubin Total 0.6 mg/dL (0.2-1.0); Potassium 3.5 mmol/L (3.5-5.1); Protein, Total 7.4 g/dL (6.4-8.2)
[2020-07-11 10:32] LABS: Urine Blood Trace-intact (Negative); Urine Glucose Negative (Negative); Urine Protein Trace (Negative); Urine Specific Gravity >=1.030 (1.005-1.030); Urine pH 6.5 (5.0-7.0)
--- NOTE | 2020-07-11 10:42 | RAD REPORT ---
EXAM DESCRIPTION: CT - Abdomen Pelvis W Contrast - 07/11/2020 10:11 am CLINICAL HISTORY: NAUSEA / VOMITING COMPARISON: Thorax Wo Con dated 04/01/2018 TECHNIQUE: Biphasic, helical CT imaging of the abdomen and pelvis was performed following 100 ml non -ionic IV contrast. No oral contrast administered. All CT scans are performed using dose optimization technique as appropriate and may include automated exposure control or mA/KV adjustment according to patient size. FINDINGS: An 11 millimeter medial right base nodule has not change from the 2019 imaging. No acute r ight lung base finding. No cardiomegaly or pericardial effusion. Borderline to mild diffuse fatty infiltration pattern of the liver. No focal liver lesion. No portal vein abnormality. Pancreas and spleen show no suspicious findings. Gallbladder and biliary tree are a lso without suspicious finding. Symmetric renal function is seen with no hydronephrosis or suspicious renal mass. No pyelonephritis o r acute parenchymal process. No bladder abnormalities. No adrenal abnormalities. Uterus and atrophic ovaries show no suspicious findings. No gastric dilatation or wall thickening seen. Patient has a very minimal hiatal hernia. Small bowel loops are not dilated but are fluid-filled and mildly prominent. Sigmoid diverticulosis is present wi thout diverticulitis. The appendix is normal. No free air, free fluid or inflammatory stranding. No hernia, mass or bulky lymphadenopathy. No suspicious bony findings. IMPRESSION: Contrast enhanced CT abdomen and pelvis showing no the margin finding. Patient has mildly prominent small bowel pattern which may indicate enteritis. Nonacute findings detailed in the body of the report.
[2020-07-11 10:52] LABS: Urine Bacteria <20 /HPF (<20); Urine Mucus LIGHT /HPF (NONE SEEN); Urine RBC <5 /HPF (NONE SEEN)
--- NOTE | 2020-07-11 11:16 | EDPHYS ---
Physician Documentation [facility] Name: Myra Healy Age: 70 yrs Sex: Female : 1950 Arrival Date: 07/11/2020 Time: 08:53 Bed 7 Private MD: Yosi Barron C ED Physician Catarino Canas HPI: 07/11 09:47 This 70 yrs old Female presents to ER via Ambulatory with complaints of rn Nausea/Vomiting. 09:47 The patient presents to the emergency department with nausea, vomiting, diarrhea. rn Onset: The symptoms/episode began/occurred last night. Possible causes: unknown. The symptoms are aggravated by nothing. The symptoms are alleviated by nothing. Associated signs and symptoms: Pertinent positives: diarrhea, nausea, vomiting, Pertinent negatives: fever, GI bleeding. Severity of symptoms: At their worst the symptoms were mild in the emergency department the symptoms are unchanged. The patient has not experienced similar symptoms in the past. The patient has not recently seen a physician. Reports nausea/vomiting/diarrhea, began last night, no fever, no blood in stool, reports lower abd cramping.. Historical: - Allergies: 09:03 No Known Allergies; sv - PMHx: 09:03 Hypertension; sv - PSHx: 09:03 sinus surgery to improve nasal drainage.; R foot; sv - Immunization history:: Client reports receiving the 2nd dose of the Covid vaccine, Client reports receiving the 1st dose of the Covid vaccine. - Social history:: Smoking status: Patient denies any tobacco usage or history of. - Family history:: not pertinent. - Hospitalizations: : No recent hospitalization is reported. ROS: 09:47 Constitutional: Negative for fever, chills, and weight loss, Eyes: Negative for injury, rn pain, redness, and discharge, Neck: Negative for injury, pain, and swelling, Cardiovascular: Negative for chest pain, palpitations, and edema, Respiratory: Negative for shortness of breath, cough, wheezing, and pleuritic chest pain, Abdomen/GI: + nausea/vomiting/diarrhea Back: Negative for injury and pain, : Negative for injury, bleeding, discharge, and swelling, MS/Extremity: Negative for injury and deformity, Skin: Negative for injury, rash, and discoloration, Neuro: Negative for headache, weakness, numbness, tingling, and seizure. Exam: 09:47 Constitutional: This is a well developed, well nourished patient who is awake, alert, rn and in no acute distress. Head/Face: Normocephalic, atraumatic. Eyes: Normal conjunctivae ENT: dry MM Cardiovascular: Regular rate and rhythm. No pulse deficits. Respiratory: No increased work of breathing, no retractions or nasal flaring. Abdomen/GI: soft, non-tender Skin: Warm, dry MS/ Extremity: Pulses equal, no cyanosis. Neuro: Awake and alert, GCS 15 Vital Signs: 09:02 BP 133 / 68; Pulse 87; Resp 16; Temp 98.7(O); Pulse Ox 99% ; Weight 76.2 kg; Height 5 hb ft. 4 in. (162.56 cm); Pain 0/10; 09:45 BP 117 / 61; Pulse 64; Resp 16; Pulse Ox 100% on R/A; hb 10:43 BP 131 / 66; Pulse 73; Resp 17; Pulse Ox 96% on R/A; tw2 11:33 BP 110 / 44; Pulse 71; Resp 17; Pulse Ox 100% on R/A; tw2 09:02 Body Mass Index 28.84 (76.20 kg, 162.56 cm) hb MDM: 09:03 Patient medically screened. rn 11:14 Differential diagnosis: Nonspecific abd pain, gastritis, pancreatitis, appendicitis, rn diverticulitis, viral gastroenteritis, gastroenteritis. Data reviewed: vital signs, nurses notes, lab test result(s), radiologic studies, CT scan, and as a result, I will discharge patient. Counseling: I had a detailed discussion with the patient and/or guardian regarding: the historical points, exam findings, and any diagnostic results supporting the discharge/admit diagnosis, lab results, radiology results, the need for outpatient follow up, to return to the emergency department if symptoms worsen or persist or if there are any questions or concerns that arise at home. Response to treatment: the patient's symptoms have markedly improved after treatment, and as a result, I will discharge patient. Special discussion: I discussed with the patient/guardian in detail that at this point there is no indication for admission to the hospital. It is understood, however, that if the symptoms persist or worsen the patient needs to return immediately for re-evaluation. ED course: CT shows enteritis, pt feels much better, will dc home with prn zofran as viral enteritis.. 07/11 09:12 Order name: Basic Metabolic Panel rn 07/11 09:12 Order name: CBC with Diff rn 07/11 09:12 Order name: Hepatic Function rn 07/11 09:12 Order name: Lipase rn 07/11 09:12 Order name: Urine Microscopic Only rn 07/11 09:38 Order name: CBC with Automated Diff; Complete Time: 10:33 EDOR 07/11 09:12 Order name: CT Abd/Pelvis - IV Contrast Only rn 07/11 09:49 Order name: Basic Metabolic Panel; Complete Time: 10:33 EDOR 07/11 09:49 Order name: Liver (Hepatic) Function; Complete Time: 10:33 [facility] 07/11 09:49 Order name: Lipase; Complete Time: 10:33 [facility] 07/11 10:32 Order name: Urine Dipstick-Ancillary; Complete Time: 10:33 [facility] 07/11 10:43 Order name: CT; Complete Time: 11:03 [facility] 07/11 10:52 Order name: Urine Microscopic Only; Complete Time: 11:03 [facility] 07/11 09:12 Order name: IV Saline Lock; Complete Time: 09:21 rn 07/11 09:12 Order name: Labs collected and sent; Complete Time: 09: rn 07/11 09:12 Order name: Urine Dipstick-Ancillary (obtain specimen); Complete Time: 10:35 rn Administered Medications: 09:21 Drug: NS 0.9% 1000 ml Route: IV; Rate: 1000 ml; Site: right antecubital; hb 10:20 Follow up: Response: No adverse reaction; IV Status: Completed infusion; IV Intake: tw2 1000ml 09:21 Drug: Zofran (Ondansetron) 4 mg Route: IVP; Site: right antecubital; hb 10:42 Follow up: Response: No adverse reaction; Nausea is decreased tw2 Disposition: 07/11/20 11:15 Discharged to Home. Impression: Gastroenteritis, Vomiting, unspecified, Diarrhea, unspecified. - Condition is Stable. - Discharge Instructions: Diarrhea, Adult, Nausea and Vomiting, Adult. - Prescriptions for Zofran ODT 4 mg Oral tablet,disintegrating - place 1 tablet by TRANSLINGUAL route every 8 hours As needed; 20 tablet. - Medication Reconciliation Form, Thank You Letter, Antibiotic Education, Prescription Opioid Use, Work release form form. - Follow up: Private Physician; When: As needed; Reason: Recheck today's complaints, Re-evaluation by your physician. - Problem is new. - Symptoms have improved. Signatures: Dispatcher [employer] EDMS Umu Reese RN RN sv Nieto, Roman, MD MD rn Baxter, Heather, RN RN hb Wise, Tara, RN RN tw2 Corrections: (The following items were deleted from the chart) 11:35 11:15 07/11/2020 11:15 Discharged to Home. Impression: Gastroenteritis; Vomiting, tw2 unspecified; Diarrhea, unspecified. Condition is Stable. Forms are Medication Reconciliation Form, Thank You Letter, Antibiotic Education, Prescription Opioid Use. Follow up: Private Physician; When: As needed; Reason: Recheck today's complaints, Re-evaluation by your physician. Problem is new. Symptoms have improved. rn 11:40 11:35 07/11/2020 11:15 Discharged to Home. Impression: Gastroenteritis; Vomiting, hb unspecified; Diarrhea, unspecified. Condition is Stable. Discharge Instructions: Diarrhea, Adult, Nausea and Vomiting, Adult. Prescriptions for Zofran ODT 4 mg Oral tablet,disintegrating - place 1 tablet by TRANSLINGUAL route every 8 hours As needed; 20 tablet. and Forms are Medication Reconciliation Form, Thank You Letter, Antibiotic Education, Prescription Opioid Use. Follow up: Private Physician; When: As needed; Reason: Recheck today's complaints, Re-evaluation by your physician. Problem is new. Symptoms have improved. tw2 12:02 11:40 07/11/2020 11:15 Discharged to Home. Impression: Gastroenteritis; Vomiting, hb unspecified; Diarrhea, unspecified. Condition is Stable. Discharge Instructions: Diarrhea, Adult, Nausea and Vomiting, Adult. Prescriptions for Zofran ODT 4 mg Oral tablet,disintegrating - place 1 tablet by TRANSLINGUAL route every 8 hours As needed; 20 tablet. and Forms are Medication Reconciliation Form, Thank You Letter, Antibiotic Education, Prescription Opioid Use, Work release form. Follow up: Private Physician; When: As needed; Reason: Recheck today's complaints, Re-evaluation by your physician. Problem is new. Symptoms have improved. hb
--- NOTE | 2020-07-11 11:16 | ER ---
Nurse's Notes [facility] Name: Myra Healy Age: 70 yrs Sex: Female : 1950 Arrival Date: 07/11/2020 Time: 08:53 Bed 7 Private MD: Yosi Barron C Diagnosis: Gastroenteritis;Vomiting, unspecified;Diarrhea, unspecified Presentation: 07/11 09:02 Chief complaint: Patient states: n/v/d x 1 week. Denies abd pain. Coronavirus screen: sv Client denies travel out of the [place] in the last 14 days. At this time, the client does not indicate any symptoms associated with coronavirus-19. Ebola Screen: No symptoms or risks identified at this time. Risk Assessment: Do you want to hurt yourself or someone else? Patient reports no desire to harm self or others. Onset of symptoms was June 2020. 09:02 Method Of Arrival: Ambulatory 09:02 Acuity: OBDULIA 3 sv 09:02 Initial Sepsis Screen: Does the patient meet any 2 criteria? No. Patient's initial hb sepsis screen is negative. Does the patient have a suspected source of infection? No. Patient's initial sepsis screen is negative. Historical: - Allergies: 09:03 No Known Allergies; sv - PMHx: 09:03 Hypertension; sv - PSHx: 09:03 sinus surgery to improve nasal drainage.; R foot; sv - Immunization history:: Client reports receiving the 2nd dose of the Covid vaccine, Client reports receiving the 1st dose of the Covid vaccine. - Social history:: Smoking status: Patient denies any tobacco usage or history of. - Family history:: not pertinent. - Hospitalizations: : No recent hospitalization is reported. Screenin:05 Abuse screen: Denies threats or abuse. Denies injuries from another. Nutritional hb screening: No deficits noted. Tuberculosis screening: No symptoms or risk factors identified. Fall Risk None identified. Assessment: 09:05 General: Appears in no apparent distress. Behavior is calm, cooperative. Pain: Denies hb pain. Neuro: Level of Consciousness is awake, alert, obeys commands, Oriented to person, place, time, situation. Cardiovascular: Patient's skin is warm and dry. Respiratory: Respiratory effort is even, unlabored, Respiratory pattern is regular, symmetrical. GI: Abdomen is non-distended, Reports diarrhea, nausea, vomiting. : No signs and/or symptoms were reported regarding the genitourinary system. EENT: No signs and/or symptoms were reported regarding the EENT system. Derm: Skin is pink, warm \T\ dry. Musculoskeletal: No signs and/or symptoms reported regarding the musculoskeletal system. 10:44 Reassessment: Patient appears in no apparent distress at this time. Patient and/or tw2 family updated on plan of care and expected duration. Pain level reassessed. Patient is alert, oriented x 3, equal unlabored respirations, skin warm/dry/pink. Patient states feeling better. 11:33 Reassessment: Patient appears in no apparent distress at this time. Patient and/or tw2 family updated on plan of care and expected duration. Pain level reassessed. Patient is alert, oriented x 3, equal unlabored respirations, skin warm/dry/pink. Patient states feeling better. Vital Signs: 09:02 BP 133 / 68; Pulse 87; Resp 16; Temp 98.7(O); Pulse Ox 99% ; Weight 76.2 kg; Height 5 hb ft. 4 in. (162.56 cm); Pain 0/10; 09:45 BP 117 / 61; Pulse 64; Resp 16; Pulse Ox 100% on R/A; hb 10:43 BP 131 / 66; Pulse 73; Resp 17; Pulse Ox 96% on R/A; tw2 11:33 BP 110 / 44; Pulse 71; Resp 17; Pulse Ox 100% on R/A; tw2 09:02 Body Mass Index 28.84 (76.20 kg, 162.56 cm) hb ED Course: 08:53 Patient arrived in ED. am2 08:53 Yosi Barron MD is Private Physician. am2 08:59 Sonia Ray, CHRISTINA is Primary Nurse. hb 09:03 Triage completed. sv 09:03 Catarino Canas MD is Attending Physician. rn 09:03 Arm band placed on. sv 09:05 Patient has correct armband on for positive identification. Placed in gown. Bed in low hb position. Call light in reach. 09:15 Inserted saline lock: 20 gauge in right antecubital area, using aseptic technique. tw2 ,using aseptic technique. per CHRISTINA Winters Blood collected. 10:01 Lipase Sent. sv 10:01 Hepatic Function Sent. sv 10:01 CBC with Diff Sent. sv 10:01 Basic Metabolic Panel Sent. sv 10:35 Urine Microscopic Only Sent. sv 11:00 CT Abd/Pelvis - IV Contrast Only Sent. sv 11:33 No provider procedures requiring assistance completed. tw2 11:34 IV discontinued, intact, bleeding controlled, No redness/swelling at site. Pressure tw2 dressing applied. Administered Medications: 09:21 Drug: NS 0.9% 1000 ml Route: IV; Rate: 1000 ml; Site: right antecubital; hb 10:20 Follow up: Response: No adverse reaction; IV Status: Completed infusion; IV Intake: tw2 1000ml 09:21 Drug: Zofran (Ondansetron) 4 mg Route: IVP; Site: right antecubital; hb 10:42 Follow up: Response: No adverse reaction; Nausea is decreased tw2 Intake: 10:20 IV: 1000ml; Total: 1000ml. tw2 Outcome: 11:15 Discharge ordered by . rn 11:34 Discharged to home ambulatory. tw2 11:34 Condition: stable 11:34 Discharge instructions given to patient, family, Instructed on discharge instructions, follow up and referral plans. medication usage, Demonstrated understanding of instructions, follow-up care, medications, Prescriptions given X 1. 11:35 Patient left the ED. tw2 11:40 Patient left the ED. hb 12:02 Patient left the ED. hb Signatures: Umu Reese RN RN Catarino Canas MD MD rn Baxter, Heather, RN RN hb Wise, Tara, RN RN tw2 Alena Garcia am2 Corrections: (The following items were deleted from the chart) 09:05 09:02 76.2 kg; Height 5 ft. 4 in.; BMI: 28.8; Pain 0/10; sv hb
[2020-07-11 11:42] VITALS: TEMP 98.7
[2020-07-11 11:46] VITALS: BP 110/44; O2SAT 100
== END 2020-07-11 12:02 | disposition home or self-care (01) ==
LOC: ER 08:50
DX: K52.9 Noninfective gastroenteritis and colitis, unspecified (principal); I10 Essential (primary) hypertension
CPT/HCPCS: 87088; 85025; 87086; 80048; 36415; 80076; 83690; 74177; Q9967; J7030; J2405; 81003; 81015; 96361; 96374; 99284